=== PATIENT | female | born 1990 | race Two or more races ===

== ENCOUNTER 2020-07-08 14:53 | Emergency (ER) | payer OTHER ==
[~2020-07-08] VITALS: Ht 165.1 cm; Wt 79.4 kg
[~2020-07-08 14:53] MED LIST: AMOX1TAB12 PO; IBUPROFEN800 MG PO; INTESTINEX680 MG PO
[2020-07-08] MEDS ORDERED: AMOXICILLIN500 M1 (15:02)
[2020-07-08] MEDS ORDERED: DICLOFENAC SODI75 MG PO (18:30)
[2020-07-08] MEDS ORDERED: ORPHENADRINE C100 MG PO (18:31)
== END 2020-07-08 18:50 | disposition home or self-care (01) ==
LOC: ER 14:53
DX: M54.2 Cervicalgia (principal)

== ENCOUNTER 2023-07-20 12:28 | Emergency (ER) | payer OTHER ==
[~2023-07-20] VITALS: Ht 162.6 cm; Wt 68.0 kg
[~2023-07-20 12:28] MED LIST changes: +AMOXICILLIN500 M1; +DICLOFENAC SODI75 MG PO; +ORPHENADRINE C100 MG PO
[2023-07-20] MEDS ORDERED: ONDANSETRON HCL 2 MG/ML VIAL IV ONE (14:00)
[2023-07-20] MEDS ORDERED: KETOROLAC TROMETHAMINE 30 MG VIAL IV ONE (14:00)
[2023-07-20 15:36] LABS: PH,URINE 6.5 (5.0-8.0); URINE APPEARANCE Cloudy; URINE BILIRRUBIN Negative (NEGATIVE); URINE BLOOD Negative; URINE COLOR Yellow; URINE GLUCOSE Negative (NEGATIVE); URINE LEUKOCYTE Negative; URINE NITRATE Negative; URINE PROTEIN Negative (NEGATIVE); URINE UROBILINOGEN 0.2 E.U./dl
[2023-07-20 15:40] LABS: URINE BACTERIA 13.8 uL (0.0-1933); URINE EPITHELIAL CELLS 4.4 uL (0.0-38.8); URINE RBC 5.7 uL (0.0-20.8); URINE WBC 2.4 uL (0.0-23.2)
[2023-07-20 15:50] LABS: HEMATOCRIT 35.6 % (36.0-45.00); HEMOGLOBIN 12.3 g/dL (12.0-15.00); MEAN CELL VOLUME 91.1 fL (80.00-100.00); MEAN CORPUSCULAR HEMOGLOBIN 31.5 pg (27.00-32.0); MEAN CORPUSCULAR HGB CONC 34.6 g/dl (32.0-36.0); PLATELET COUNT 189 K/uL (150-450); RED BLOOD COUNT 3.91 M/uL (4.00-6.00); RED CELL DISTRIBUTION WIDTH 13.5 % (11.5-14.5)
[2023-07-20 16:02] LABS: ALBUMIN 3.4 gm/dL (3.4-5.0); BILIRUBIN TOTAL 0.43 mg/dL (0.3-1.2); CALCIUM 9.1 mg/dL (8.5-10.1); CREATININE SERUM 0.75 mg/dL (0.55-1.02); GFR 88.99; GLOBULINA 3.5 G/DL (2.4-3.5); POTASSIUM 3.82 mEq/L (3.5-5.1); TOTAL PROTEIN 6.9 gm/dL (6.4-8.2)
[2023-07-20] MEDS ORDERED: KETO10TA2 PO (18:34)
== END 2023-07-20 18:46 | disposition home or self-care (01) ==
LOC: ER 12:28
PROVIDERS: General Practice
DX: R10.31 Right lower quadrant pain (principal)